=== PATIENT | female | born 1950 ===

== ENCOUNTER → 2018-08-04 07:35 | Outpatient (CLI) | payer OTHER ==
[~2018-08-04 07:35] MED LIST: AMBIEN10 MG PO; CIPRO750 MG PO; COZAAR100 MG PO; Colace 100MG PO; ENALAPRIL MALEA10 MG NGT; NEURONTIN PO; PERCOCET 5/3251 TAB PO; RESTORIL15 M1 PO; XANAX XR0.5 MG PO; ZETIA10 MG PO
== END | disposition home or self-care (01) ==
LOC: SONOGRAMA 07:35
DX: E04.2 Nontoxic multinodular goiter (principal)